=== PATIENT | female | born 1975 | race Caucasian/White ===

== ENCOUNTER → 2021-05-06 08:18 | Outpatient (CLI) | payer OTHER, SELFPAY ==
--- NOTE | ~2021-05-06 | CT_ITS ---
EXAMINATION: CT soft tissue neck w con EXAM DATE: 05/06/2021 08:52 INDICATION: Localized swelling, mass and lump, neck. Left neck mass for 8 weeks, has changed in size and smaller after steroid treatment. TECHNIQUE: Spiral CT of the neck was performed following intravenous injection of 75 mL Omnipaque 350 . Axial, coronal and sagittal images were reviewed. The dose-length product (DLP) for this examinat ion was 348.60 mGy-cm. The exposure was tailored according to patient size (auto mA exposure control ), and iterative reconstruction (ASIR) was used as additional dose reduction technique. There is no prior study for comparison. FINDINGS: There is cystic mass along the inferior posterior aspect of the left parotid gland, posteri or to the retromandibular vein measuring 2.5 x 1.7 x 3.3 cm. Differential diagnosis includes necrotic lymph node from infection, granulomatous process, squamous cell cancer or other metastatic disease, primary parotid gland neoplasm, branchial cleft cyst (congenital). No other neck masses or lymphadenopathy. The thyroid gland is unremarkable. The superior mediastinu m is unremarkable. The airway is unremarkable. Parapharyngeal and pre-glottic fat planes are pres erved. The opacified vasculature is patent. The orbits are unremarkable. Visualized sinuses and mastoid air cells are well aerated. The lung apices are clear. Mild to moderate cervical spondylo sis. IMPRESSION: Left mandibular angle neck cystic mass, differential diagnosis benign and malignant histo logies. ENT consult. Reviewed, dictated and finalized at location A. IMPRESSION: Left mandibular angle neck cystic mass, differential diagnosis tena gn and malignant histologies. ENT consult.
== END ==
PROVIDERS: PCP Physician Assistant Medical; Visit Provider Physician Assistant Medical
DX: R22.1 Localized swelling, mass and lump, neck (principal)
CPT/HCPCS: 70491; Q9967

== ENCOUNTER → 2021-06-01 02:13 | Outpatient (CLI) | payer OTHER, SELFPAY ==
[2021-06-01 18:59] LABS: SARS-CoV-2 RNA PCR Negative
== END ==
PROVIDERS: PCP Physician Assistant Medical; Visit Provider Internal Medicine Gastroenterology
DX: Z01.812 Encounter for preprocedural laboratory examination (principal); Z20.822 Contact with and (suspected) exposure to COVID-19
CPT/HCPCS: C9803; U0003; U0005

== ENCOUNTER 2021-06-04 01:26 | Day surgery (SDC) | payer OTHER, SELFPAY ==
[2021-05-27 15:35] VITALS: BMI 28.9
--- NOTE | 2021-06-03 14:18 | P.PNAN_ITS ---
Anes - Initial Pre Proc Eval Procedure: Operation Date: 06/04/21 07:30 Proposed Procedures p Esophagogastroduodenoscopy - Edgar Jacobs MD Date/Time: 06/03/21 14:18 Surgeon: Edgar Jacobs MD Pre Op Diagnosis: dysphagia Patient Data Age: 46 Gender: F Height: 1.6 m Weight: 74 kg Allergies Allergy/AdvReac Type Severity Reaction Status Date / Time codeine Allergy Severe THROAT Verified 05/27/21 15:40 SWELLING hydrocodone Allergy Severe Swelling Verified 05/27/21 15:40 of Lip/Tongue/Throat meperidine Allergy Severe Swelling Verified 05/27/21 15:40 of Lip/Tongue/Throat tramadol Allergy Severe Swelling Verified 05/27/21 15:40 of Lip/Tongue/Throat Home Medications Medication Instructions Recorded Confirmed Type citalopram 20 mg tablet 20 mg PO DAILY 05/26/21 05/27/21 History pantoprazole 40 mg tablet,delayed 40 mg PO BID tablet 05/26/21 05/27/21 History release Patient hx anesthesia problems: none Family hx anesthesia problems: none Results Review: All pre-operative results and documents have been reviewed as part of the pre-operative evaluation. [facility] Past Medical History Medical History Gallbladder & bile duct stone with obstruction Impingement syndrome of left shoulder Smoker Tendinitis of left rotator cuff Surgical History Surgical History H/O: hysterectomy LAP-BAND surgery status Family History Family History Other Diabetes mellitus Social History Social History Smoking packs per day: 1 Smoking cigarettes per day: 20.0 Years smoked: 33 Smoking pack-years: 33.00 Smoking status: Current every day smoker Tobacco type: cigarettes Alcohol intake: current Drinks per week: 4 Substance use: never Substance use type: does not use Living arrangements: with family Spiritual care concerns: No Anes - Eval Final PreProcedure Day of Procedure 06/03/21 14:18 Patient weight: overweight Heart: regular rate and rhythm Lungs: clear to auscultation and normal air movement Airway: Mallampati scale class II Neurological: alert and oriented Last oral intake: >/= 8 hours ASA classification: II Emergent: no Anesthetic plan: proceed Anesthesia type and monitoring: general GIVS Results Review: All pre-operative results and documents have been reviewed as part of the pre-operative evaluation. Informed Consent: The patient's anesthetic plan and its attendant risks and benefits were discussed with the patient/family/POA. Questions were solicited and answers provided to the satisfaction of the patient/family/POA.
--- NOTE | 2021-06-03 16:13 | PM.HPGS ---
History of Present Illness History of Present Illness Consent: Risks, benefits, and alternatives have been discussed and questions answered. Patient agrees to proceed with procedure. Chief complaint: dysphagia Narrative: Blanca Luna is a 46 year old female who for the past 8 weeks she has had a great deal of difficulty with what seems to be acid reflux. First she would wake up at night choking. Then is began happening during the day as well. She saw an ear nose and throat physician who did not find much wrong but suggested trying pantoprazole twice a day. So far this has not helped. She has difficulty swallowing dry foods such as pasta and meat, and bread has seemed to get caught in the substernal area. She constantly feels that she needs to swallow as though phlegm is caught in her throat. She notices that at times it feels like something is bothering the left side of her throat and also will make her tear up on the left side. Her weight is stable. When she had her gastric bypass procedure, a lap band, 8 years ago she had a hiatal hernia repair at the same time. Current symptoms: Reports throat pain, cough and dysphagia Review of Systems Review of Systems: All systems reviewed & are unremarkable except as noted in HPI and below PMFSH Past Medical History Medical History Gallbladder & bile duct stone with obstruction Impingement syndrome of left shoulder Smoker Tendinitis of left rotator cuff Surgical History Surgical History H/O: hysterectomy LAP-BAND surgery status Family History Family History Other Diabetes mellitus Social History Social History Smoking packs per day: 1 Smoking cigarettes per day: 20.0 Years smoked: 33 Smoking pack-years: 33.00 Smoking status: Current every day smoker Tobacco type: cigarettes Alcohol intake: current Drinks per week: 4 Substance use: never Substance use type: does not use Living arrangements: with family Spiritual care concerns: No Meds Home Medications and Allergies Home Medications Medication Instructions Recorded Confirmed Type citalopram 20 mg tablet 20 mg PO DAILY 05/26/21 05/27/21 History pantoprazole 40 mg tablet,delayed 40 mg PO BID tablet 05/26/21 05/27/21 History release Allergies Allergy/AdvReac Type Severity Reaction Status Date / Time codeine Allergy Severe THROAT Verified 05/27/21 15:40 SWELLING hydrocodone Allergy Severe Swelling Verified 05/27/21 15:40 of Lip/Tongue/Throat meperidine Allergy Severe Swelling Verified 05/27/21 15:40 of Lip/Tongue/Throat tramadol Allergy Severe Swelling Verified 05/27/21 15:40 of Lip/Tongue/Throat Exam Const: General: alert Orientation/consciousness: patient oriented x3 Resp: Auscultation: clear to auscultation bilaterally Cardio: Rhythm: regular rhythm GI: GI Palp: Yes Soft to palpation and No Tenderness to palpation present (GI) Neuro: General: patient oriented x3 Assessment and Plan Assessment and plan (1) GERD (gastroesophageal reflux disease): Code(s): K21.9 - Gastro-esophageal reflux disease without esophagitis Status: Acute Assessment and Plan: EGD with possible biopsy or dilatation or cautery.
[2021-06-04 06:33] VITALS: BP 133/91; PULSE 68; RESP 18; TEMP 36.1; O2SAT 100
[2021-06-04] MEDS: LACTATED RINGERS 1,000 ML 150 ML IV CONT (07:04)
[2021-06-04 07:43] VITALS: BP 133/90; PULSE 80; RESP 20; O2SAT 99
[2021-06-04 07:53] VITALS: BP 150/103; PULSE 81; RESP 21; O2SAT 99
[2021-06-04 08:03] VITALS: BP 145/95; PULSE 65; RESP 20; O2SAT 100
== END 2021-06-04 08:09 | disposition home or self-care (01) ==
PROVIDERS: PCP Physician Assistant Medical; Visit Provider Internal Medicine Gastroenterology
PROC: 0DJ08ZZ Inspection of Upper Intestinal Tract, Via Natural or Artificial Opening Endoscopic (ICD-10-PCS; CPT 43235; principal; 2021-06-04 07:30)
DX: R13.10 Dysphagia, unspecified (principal); K21.9 Gastro-esophageal reflux disease without esophagitis; Z98.84 Bariatric surgery status; F17.210 Nicotine dependence, cigarettes, uncomplicated
CPT/HCPCS: 43239; 87081; 88305; C9803; J2704; J7120; U0003; U0005

== ENCOUNTER 2021-07-08 07:51 | Outpatient (CLI) | payer OTHER, SELFPAY ==
--- NOTE | ~2021-07-08 | XR_ITS ---
EXAMINATION: XR barium swallow modified DATE: 07/08/2021 08:27 INDICATION: Dysphagia TECHNIQUE: Modified barium esophagram was performed by myself to administered fluoroscopy, in conjun ction with speech pathologist who administered barium in varying consistencies as per speech patholog ist documentation. This was recorded on tape. A single fluoroscopic spot image was recorded. The DAP for this procedure was 0.818 Gycm2. Fluoroscopy exposure time was 1.3 minutes. FINDINGS: Oral stage: Adequate function. Pharyngeal phase: Adequate function. Laryngeal penetration: None. Aspiration: None. Laryngeal sensitivity: Not applicable. IMPRESSION: Normal modified barium swallow. Please refer to speech pathologist findings and specific feeding recommendations. Reviewed, dictated and finalized at location A. [employer] DE[employer]MENT [employer]PER
--- NOTE | 2021-07-08 08:54 | STOPEVAL ---
Thank you for referring Blanca Luna to [facility].? T I agree with and certify that the following plan of care is medically necessary. Referring Physician Date Attending Provider: Edgar Jacobs MD Therapy Assessment Status Assessment Status Assessment Status Evaluation Outpatient Past Medical History Past Medical History Source of Past Medical History Patient Neurological History Hx Neurological Disorders No Significant History Cardiovascular History Hx Cardiac Disorders No Significant History Respiratory History Hx Respiratory Disorders No Significant History Gastrointestinal History Hx Cholecystectomy Yes: 2006 Hx Gastric Bypass Surgery Yes: LAP-BAND 2011 Hx Gastroesophageal Reflux Disease Yes: DYSPHAGIA X 8 WEEKS- WAKING UP AT NIGHT Hx Hernia Yes: HIATAL HERNIA-REPAIRED WITH LAP BAND SURGERY Hx Polyps Yes: 09/2019 Genitourinary History Hx Genitourinary Disorders No Significant History Musculoskeletal History Hx Other Musculoskeletal Disorders Yes: INJECTIONS LEFT SHOULDER FOR NERVE IMPINGEMENT Hematological History Hx Hematological Disorders No Significant History Endocrine History Hx Endocrine Disorders No Significant History HEENT History Hx Tonsillectomy Yes Hx Sinus Problems Yes Hx Deviated Septum Yes: POLYPS Integumentary History Hx Skin Disorders No Significant History Psychosocial History Hx Anxiety Yes Hx Depression Yes: SEASONAL Pain History History of Any Previous or Ongoing No Significant History Instance of Pain Anesthesia History Hx Post-Op Nausea/Vomiting Yes Other History Hx Implanted Device Yes: LAP-BAND Pain Assessment Timing of Pain Assessment Timing of Pain Assessment Assessment Self Report Self Report Pain Level 0 Pain Score Pain Score 0: Self Report Modified Barium Swallow Evaluation Recent Swallowing History Reports Dysphagia No Onset of Dysphagia 8-9 WEEKS History of Dysphagia No Other Related History Cyst on left side of neck for 8-9 weeks; will be removed by surgery 07/13. History of Pneumonia No Reported Difficult Consistencies Unable to Identify Intake Method Prior to Swallow Oral Evaluation Diet Prior to Swallow Evaluation Regular, Level 7 Liquid Consistency Prior to Swallow Thin (0) Evaluation Consistency Solid Consistency 5 mL Method of Presentation Spoon Oral Preparatory Symptoms Within Functional Limits Oral Phase Symptoms
== END 2021-07-08 07:52 | disposition home or self-care (01) ==
LOC: ANHIMG 07:51
PROVIDERS: PCP Physician Assistant Medical; Visit Provider Internal Medicine Gastroenterology
DX: R13.10 Dysphagia, unspecified (principal)
CPT/HCPCS: 92611